=== PATIENT | male | born 1975 | race African-American/Black ===

== ENCOUNTER 2019-11-23 13:21 | Emergency (ER) | payer BC ==
[~2019-11-23] VITALS: Ht 170.2 cm; Wt 104.3 kg
[2019-11-23] MEDS ORDERED: HYDROCODONE/APAP 7.5MG-325MG 1 EA TAB PO PRN (13:45)
[2019-11-23] MEDS ORDERED: KETOROLAC TROMETHAMINE 60 MG/2 ML VIAL IM NR (13:45)
--- NOTE | 2019-11-23 13:51 | Emergency Department Note ---
History of Present Illnes History of Present Illness Chief Complaint: General Medicine Complaints History of Present Illness This is a 43 year old male .c/o left ankle pian on set yesterday denies injury RIGHT ANKLE PAIN, THAT BECAME WORSE OVER THE LAST FEW DAYS. DENIES HISTORY OF FOOT TRAUMA, NO REDNESS, NO SWELLING. Historian: Patient Arrival Mode: Car Onset (how long ago): day(s) (2 days) Location: left ankle Quality: moderate Radiation: non-radiation, back, neck, extremity, abdomen, periumbilical, flank, proximal, distal, other Severity: moderate Onset quality: sudden Duration (how long): day(s) (2 days) Timing of current episode: constant Progression: worsening Context: recent illness, recent surgery, recent immobilization, recent travel, trauma/injury, new medications, hx of DVT/PE, non-compliance w/ medications, other Relieving factors: none Exacerbating factors: none Treatments prior to arrival: none (CHIKIS ROONEY NP) Past Medical/Family History Physician Review I have reviewed the patient's past medical and family history. Any updates have been documented here. (CHIKIS ROONEY NP) Past Medical History Recent Fever: No Clinical Suspicion of Infectio: No New/Unexplained Change in Ment: No Past Medical History: None Past Surgical History: None (CHIKIS ROONEY NP) Social History Smoking Cessation: Never Smoker Alcohol Use: None Any Illegal Drug Use: No TB Exposure/Symptoms: No Physically hurt or threatened: No (CHIKIS ROONEY NP) Family History Family history of heart diseas: No (CHIKIS ROONEY NP) Other Any Pre-Existing Lines (PICC,: No (CHIKIS ROONEY NP) Review of Systems Review of Systems Constitutional: no symptoms EENTM: no symptoms Cardiovascular: no symptoms Respiratory: no symptoms Gastrointestinal: no symptoms Genitourinary: no symptoms Musculoskeletal: joint pain (left ankle ), joint swelling Neurological: no symptoms Psychological: no symptoms Endocrine: no symptoms Hematological/Lymphatic: no symptoms Review of other systems All other systems reviewed and negative. (CHIKIS ROONEY NP) Physical Exam Related Data Allergies: Coded Allergies: No Known Allergies (Unverified , 11/23/19) Triage Vital Signs Vital Signs Date Time Temp Pulse Resp B/P (MAP) Pulse Ox O2 Delivery O2 Flow Rate FiO2 11/23/19 13:38 97.8 85 16 176/99 97 Vital signs reviewed: Yes (CHIKIS ROONEY NP) Physical Exam CONSTITUTIONAL Constitutional: well-developed, well-nourished HENT HENT: normocephalic, atraumatic, oropharynx clear/moist, nose normal HENT L/R: left ext ear normal, right ext ear normal EYES Eyes: PERRL, conjunctivae normal NECK Neck: ROM normal PULMONARY Pulmonary: effort normal, breath sounds normal CARDIOVASCULAR Cardiovascular: regular rhythm, heart sounds normal, capillary refill normal, normal rate GASTROINTESTINAL Abdominal: soft, nontender, bowel sounds normal GENITOURINARY Genitourinary: exam deferred SKIN Skin: warm, dry MUSCULOSKELETAL Musculoskeletal: ROM normal, tenderness, swelling, other (c/o left ankle pain denies injury no redness noted joint warm to touch no distal neuro deficits pedal pulses += bilat cap refill < 3 sec denies hx of gout ); edema, deformity NEUROLOGICAL Neurological: alert, oriented x 3, no gross motor or sensory deficits PSYCHOLOGICAL Psychological: mood/affect normal, judgement normal (CHIKIS ROONEY NP) Results Imaging Impressions Exam: Right ankle radiographs-3 views History: Pain. Comparison: None. Findings/Impression: No evidence of acute fracture or malalignment. Ankle mortise is preserved. Mild soft tissue edema in the ankle. Mild corticated deformity at the medial malleolus may reflect sequela of remote trauma. Signed by: Dr. Brisa Huston MD on 11/23/2019 2:54 PM Dictated By: BRISA HUSOTN MD [id number] Transcribed By: GIANNI on 11/23/19 1917 (CHIKIS ROONEY NP) Critical Care Time Subsequent provider I assumed direction of critical care for this patient from another provider of my specialty. (CHIKIS ROONEY NP) Assessment & Plan Reassessment Reassessment time: 13:50 Reassessment 43y m presented to ed c/o left ankle pain denies injury no redness noted joint warm to touch no distal neuro deficits pedal pulses += bilat cap refill < 3 sec denies hx of gout - discussed plan of care w/ Dr Rain - rad ordered - pt medicated w/ toradol norco decadron (CHIKIS ROONEY NP) Assessment & Plan Final Impression: (1) PAIN IN LEFT ANKLE AND JOINTS OF LEFT FOOT Assessment & Plan discussed rad results plan of care and need for f/u - discussed poss this was caused by gout 1. f/u w/ ortho in 1-2 days w/o fail 2. return to ed as needed 3. rx t#3 prednisone indocin (CHIKIS ROONEY [employer]) Depart Disposition: HOME, SELF-CARE Last Vital Signs Date Time Temp Pulse Resp B/P (MAP) Pulse Ox O2 Delivery O2 Flow Rate FiO2 11/23/19 13:38 97.8 85 16 176/99 97 (CHIKIS ROONEY NP) Physician Attestation Provider Attestation i discussed with advanced practitioners and agree with diagnosis, treatment and plan (TED RAIN) CHIKIS ROONEY NP November 23, 2019 13:51 TED RAIN Nov 24, 2019 08:56
[2019-11-23] MEDS ORDERED: DEXAMETHASONE SOD PHOS 10 MG/1 ML VIAL IM ONE (14:00)
--- NOTE | 2019-11-23 14:57 | Diagnostic Imaging Report ---
Exam: Right ankle radiographs-3 views History: Pain. Comparison: None. Findings/Impression: No evidence of acute fracture or malalignment. Ankle mortise is preserved. Mild soft tissue edema in the ankle. Mild corticated deformity at the medial malleolus may reflect sequela of remote trauma. Signed by: Dr. Barbara Salguero MD on 11/23/2019 2:54 PM
[2019-11-23 15:12] VITALS: BP 168/82
== END 2019-11-23 15:31 | disposition home or self-care (01) ==
LOC: ER 13:21
DX: M25.572 Pain in left ankle and joints of left foot (principal)
CPT/HCPCS: 73610; 99282; J1100; J1885

== ENCOUNTER → 2020-01-23 | Outpatient (CLI) | payer BC ==
[~2020-01-23] MED LIST: IOPAMIDOL 370 MG/ML 200 ML INFUS..BTL INJ ONE; SODIUM CHLORIDE 0.9% 50ML 50 ML ONE
--- NOTE | 2020-01-23 18:31 | Diagnostic Imaging Report ---
EXAM: CT Abdomen and Pelvis WITH contrast INDICATION: Lower abdominal pain. COMPARISON: None. TECHNIQUE: Abdomen and pelvis were scanned utilizing a multidetector helical scanner from the lung base to the pubic symphysis after administration of IV contrast. Coronal and sagittal reformations were obtained. Routine protocol was performed. Scan was performed when during portal venous phase. IV CONTRAST: 100 mL of Isovue 370 ORAL CONTRAST: None COMPLICATIONS: None RADIATION DOSE: Total DLP: 384.16 mGy*cm Estimated effective dose: (DLP x 0.015 x size factor) mSv CTDIvol has been reviewed. It is below the limits set by the Radiation Protocol Committee (RPC). Dose modulation, iterative reconstruction, and/or weight based adjustment of the mA/kV was utilized to reduce the radiation dose to as low as reasonably achievable. FINDINGS: LINES and TUBES: None. LOWER THORAX: Unremarkable HEPATOBILIARY: No focal hepatic lesions. No biliary ductal dilation. GALLBLADDER: No radio-opaque stones or sludge. No wall thickening. SPLEEN: No splenomegaly. PANCREAS: No focal masses or ductal dilatation. ADRENALS: No adrenal nodules KIDNEYS/URETERS: Kidneys enhance symmetrically. No hydronephrosis. No cystic or solid mass lesions. No stones. GI TRACT: There is diverticulosis coli and short segment mucosal thickening of the sigmoid colon with pericolonic fat stranding. The remainder of the large bowel and small bowel are normal for image technique. No drainable fluid collections or free air. The appendix is normal. The stomach is normal. PELVIC ORGANS/BLADDER: Unremarkable. LYMPH NODES: There are multiple prominent para-aortic lymph nodes none of which meet criteria for pathology enlargement, and are likely reactive. VESSELS: Unremarkable. PERITONEUM / RETROPERITONEUM: No free air or fluid. BONES: There is a focus of increased bony sclerosis in the right femoral head compatible with a benign bone island. The bones are otherwise normal. SOFT TISSUES: Unremarkable. IMPRESSION: Diverticulosis coli and short segment mucosal thickening of the sigmoid colon with pericolonic fat stranding suggestive of acute uncomplicated diverticulitis. Recommend further evaluation of the sigmoid colon with colonoscopy after resolution of the acute inflammation to exclude underlying mass. Results and recommendations were discussed with Dr. Amador at 6:15 PM on 01/23/2020. Signed by: John Burrell MD on 01/23/2020 6:28 PM
== END ==
LOC: CT 17:19
PROVIDERS: ATTEND Internal Medicine Gastroenterology
DX: R10.30 Lower abdominal pain, unspecified (principal)
CPT/HCPCS: 74177; Q9967

== ENCOUNTER → 2020-04-09 | Day surgery (SDC) | payer BC, OTHER ==
[~2020-04-09] MED LIST changes: +FENTANYL CITRATE/PF 100MCG/2 ML INJ ONE; +GLUCAGON FOR INJ 1 MG VIAL ONE; +HYOSCYAMINE 0.125 MG TAB ONE; -IOPAMIDOL 370 MG/ML 200 ML INFUS..BTL INJ ONE; +LIDOCAINE HCL 2% LOCAL INJ 5 ML SDV VIAL INJ ONE; +MIDAZOLAM HCL 2 MG/2 ML VIAL ONE; +PROPOFOL IV EMULSION 10 MG/ML 20 ML VIAL ONE; -SODIUM CHLORIDE 0.9% 50ML 50 ML ONE
[2020-04-09 13:28] VITALS: BP 125/83
--- NOTE | 2020-04-09 14:46 | Operative Report ---
DATE OF PROCEDURE: 04/09/2020 SURGEON: Bernabe Amador MD PROCEDURE: Colonoscopy with biopsies. INDICATIONS FOR COLONOSCOPY: Lower abdominal pain, rectal pressure. MEDICATIONS: The patient was done under MAC, please see anesthesiologist's note. PROCEDURE IN DETAIL: With the patient in left lateral decubitus position, a flexible fiberoptic Olympus colonoscope was inserted into the rectum with ease and advanced all the way to the cecum. It was then withdrawn slowly, mucosa overlying the cecum, ascending colon, transverse colon, and descending colon appeared to be within normal limits. Diverticular disease was noted to involve the sigmoid colon. The overlying mucosa of the sigmoid revealed some moderate inflammatory changes and a minor degree, also the rectal mucosa exhibited some inflammatory changes. There were no ulcerations. Could not rule out a low-grade diverticulitis in the sigmoid colon due to the edema present. The scope was then retroflexed into the distal rectum and small internal hemorrhoids were noted, none of which was actively bleeding. IMPRESSION: 1. Diverticulosis ? low-grade diverticulitis. 2. Patchy inflammatory changes, sigmoid and rectum; biopsies obtained. 3. Internal hemorrhoids, none actively bleeding. PLAN: 1. Follow up histology. 2. We will give a course of Flagyl 500 mg one p.o. every 6 hours x 10 days and Levaquin 500 mg one p.o. daily x10 days for possible low-grade diverticulitis. 3. Initiate Bentyl 10 mg one p.o. t.i.d. Bernabe Amador MD [facility] [place]/[facility] /[id number] cc: Trever Joy DO
== END | disposition home or self-care (01) ==
LOC: OR 09:24
PROVIDERS: ATTEND Internal Medicine Gastroenterology
DX: K59.00 Constipation, unspecified (principal); K52.9 Noninfective gastroenteritis and colitis, unspecified; K57.30 Diverticulosis of large intestine without perforation or abscess without bleeding; K62.89 Other specified diseases of anus and rectum; K64.8 Other hemorrhoids; Z01.810 Encounter for preprocedural cardiovascular examination; Z01.812 Encounter for preprocedural laboratory examination; Z11.59 Encounter for screening for other viral diseases
CPT/HCPCS: 45380; 93005; J1610; J2001; J2250; J2704; J3010; U0002